=== PATIENT | female | born 2000 | race Caucasian/White ===

== ENCOUNTER 2019-01-02 19:52 | Emergency (ER) | payer BC ==
[2019-01-02] MEDS ORDERED: NS 0.9% 1000 ML** 1,000 ML IV ONE (23:37)
[2019-01-02] MEDS ORDERED: Acetaminophen TAB* 325 MG PO ONE (23:37)
[2019-01-03 00:18] LABS: ABS Lymphocytes 0.9 10^3/ul (1.0-4.8); ABS Monocytes 0.5 10^3/ul (0-0.8); ABS Neutrophils 5.4 10^3/ul (1.5-7.7); Hematocrit 41 % (35-47); Hemoglobin 13.4 g/dL (12.0-16.0); Lymphocyte % 13.4 %; Mean Corpuscular HGB Conc 33 g/dL (31-36); Mean Corpuscular Hemoglobin 30 pg (27-31); Mean Corpuscular Volume 91 fL (80-97); Mean Platelet Volume 9.7 fL (7.4-10.4); Nucleated Red Blood Cells % 0.1; Platelet Count 184 10^3/uL (150-450); Red Blood Count 4.45 10^6 /uL (3.70-4.87); Red Cell Distribution Width 14 % (10-15); White Blood Count 6.8 10^3/uL (3.5-10.8)
[2019-01-03 00:32] LABS: ALT 21 U/L (7-52); AST 28 U/L (13-39); Albumin 3.9 g/dL (3.2-5.2); Albumin/Globulin Ratio 1.2 (1-3); Alkaline Phosphatase 52 U/L (34-104); Anion Gap 8 mmol/L (2-11); BUN/Creatinine Ratio 9.6 (8-20); Blood Urea Nitrogen 7 mg/dL (6-24); C Reactive Protein 95.46 mg/L (<8.01); CO2 Carbon Dioxide 23 mmol/L (22-32); Calcium 8.5 mg/dL (8.6-10.3); Chloride 104 mmol/L (101-111); EGFR Non-African American 101.6 (>60); Globulin 3.2 g/dL (2-4); Glucose 102 mg/dL (70-100); Potassium 3.8 mmol/L (3.5-5.0); Sodium 135 mmol/L (135-145); Total Protein 7.1 g/dL (6.4-8.9)
--- NOTE | 2019-01-03 00:33 | ED ---
HPI Febrile Illness - HPI Summary HPI Summary: 18-year-old female presents with his days. States she's been having a sore throat. States her fevers have been continuing even now she has been dosing Tylenol and ibuprofen every 6 hours. States she went [place] and they tested her for mono and strep and flu which were negative. She denies any cough. No urinary symptoms. No abdominal pain. No nausea vomiting or diarrhea. No chest pain or shortness of breath. She admits to occasional headache but no neck stiffness. Has no medical conditions. - History of Current Complaint Chief Complaint: EDFever Time Seen by Provider: 01/02/19 23:29 Pain Intensity: 6 - Allergy/Home Medications Allergies/Adverse Reactions: Allergies Allergy/AdvReac Type Severity Reaction Status Date / Time No Known Allergies Allergy Verified 01/02/19 20:01 Home Medications: Home Medications Azithromycin TAB* [Zithromax TAB (Z-FADIA) 250 mg #6 tabs] 250 mg PO DAILY [History Confirmed 01/02/19] PMH/Surg Hx/FS Hx/Imm Hx Endocrine/Hematology History: Denies: Hx Anticoagulant Therapy Respiratory History: Denies: Hx Asthma Infectious Disease History: Yes Infectious Disease History: Denies: Traveled Outside the [place] in Last 30 Days - Family History Known Family History: Positive: Non-Contributory - Social History Alcohol Use: None Substance Use Type: Reports: None Smoking Status (MU): Never Smoked Tobacco Review of Systems Positive: Fever Positive: Sore Throat Negative: Chest Pain Negative: Shortness Of Breath, Cough All Other Systems Reviewed And Are Negative: Yes Physical Exam Triage Information Reviewed: Yes Vital Signs On Initial Exam: Initial Vitals Temp Pulse Resp BP Pulse Ox 100 F 125 18 137/103 98 01/02/19 20:00 01/02/19 20:00 01/02/19 20:00 01/02/19 20:00 01/02/19 20:00 Vital Signs Reviewed: Yes Appearance: Positive: Well-Appearing Skin: Positive: Warm, Dry Head/Face: Positive: Normal Head/Face Inspection Eyes: Positive: Normal, EOMI, ANTHONY, Conjunctiva Clear ENT: Positive: Normal ENT inspection, Pharyngeal erythema, TMs normal, Uvula midline, Other - soft palate symmetric. Negative: Tonsillar swelling, Tonsillar exudate, Trismus, Muffled voice Neck: Positive: Supple, Nontender, No Lymphadenopathy. Negative: Nuchal Rigidity Respiratory/Lung Sounds: Positive: Clear to Auscultation, Breath Sounds Present Cardiovascular: Positive: Normal, RRR Abdomen Description: Positive: Nontender, Soft Bowel Sounds: Positive: Present Musculoskeletal: Positive: Normal Neurological: Positive: Normal Psychiatric: Positive: Normal Diagnostics - Vital Signs Vital Signs Temp Pulse Resp BP Pulse Ox 01/03/19 00:00 91 100 01/02/19 23:53 84 97 01/02/19 23:52 92 117/84 100 01/02/19 23:37 100 01/02/19 22:13 98.7 F 103 18 119/79 99 01/02/19 20:00 100 F 125 18 137/103 98 - Laboratory Lab Results: Lab Results 01/03/19 01/03/19 01/03/19 Range/Units 00:05 00:05 00:05 WBC 6.8 (3.5-10.8) 10^3/uL RBC 4.45 (3.70-4.87) 10^6 /uL Hgb 13.4 (12.0-16.0) g/dL Hct 41 (35-47) % MCV 91 (80-97) fL MCH 30 (27-31) pg MCHC 33 (31-36) g/dL RDW 14 (10-15) % Plt Count 184 (150-450) 10^3/uL MPV 9.7 (7.4-10.4) fL Neut % (Auto) 79.6 % Lymph % (Auto) 13.4 % [place] % (Auto) 6.7 % Eos % (Auto) 0.0 % Baso % (Auto) 0.3 % Absolute Neuts (auto) 5.4 (1.5-7.7) 10^3/ul Absolute Lymphs (auto) 0.9 L (1.0-4.8) 10^3/ul Absolute Monos (auto) 0.5 (0-0.8) 10^3/ul Absolute Eos (auto) 0.0 (0-0.6) 10^3/ul Absolute Basos (auto) 0.0 (0-0.2) 10^3/ul Absolute Nucleated RBC 0.0 10^3/ul Nucleated RBC % 0.1 Sodium 135 (135-145) mmol/L Potassium 3.8 (3.5-5.0) mmol/L Chloride 104 (101-111) mmol/L Carbon Dioxide 23 (22-32) mmol/L Anion Gap 8 (2-11) mmol/L BUN 7 (6-24) mg/dL Creatinine 0.73 (0.51-0.95) mg/dL Est GFR ( Amer) 123.0 (>60) Est GFR (Non-Af Amer) 101.6 (>60) BUN/Creatinine Ratio 9.6 (8-20) Glucose 102 H (70-100) mg/dL Lactic Acid 0.7 (0.5-2.0) mmol/L Calcium 8.5 L (8.6-10.3) mg/dL Total Bilirubin 0.30 (0.2-1.0) mg/dL AST 28 (13-39) U/L ALT 21 (7-52) U/L Alkaline Phosphatase 52 (34-104) U/L C-Reactive Protein 95.46 H (<8.01) mg/L Total Protein 7.1 (6.4-8.9) g/dL Albumin 3.9 (3.2-5.2) g/dL Globulin 3.2 (2-4) g/dL Albumin/Globulin Ratio 1.2 (1-3) Beta HCG, Quant Pending Monoscreen Pending Result Diagrams: 01/03/19 00:05 01/03/19 00:05 Lab Statement: Any lab studies that have been ordered have been reviewed, and results considered in the medical decision making process. - Radiology chest Radiology Interpretation Completed By: ED Physician Summary of Radiographic Findings: no pneumonia Course/Dx - Course Course Of Treatment: 18-year-old female presents with his days. States she's been having a sore throat. States her fevers have been continuing even now she has been dosing Tylenol and ibuprofen every 6 hours. States she went [place] and they tested her for mono and strep and flu which were negative. She denies any cough. No urinary symptoms. No abdominal pain. No nausea vomiting or diarrhea. No chest pain or shortness of breath. She admits to occasional headache but no neck stiffness. Has no medical conditions. On exam appears well. Pharynx erythematous. Uvula midline. Soft palate symmetric. lungs clear to Auscultation. Abdomen soft nontender. Chest x-ray read by me as normal. White blood cell count normal. Gave fluids and feeling better. Discussed likely a viral syndrome. Told to treat supportively. Patient understands agrees plan. - Febrile Illness Differential Diagnoses: Pneumonia, Viremia, Other: - mono - Diagnoses Provider Diagnoses: Fever, Pharyngitis Discharge ED - Sign-Out/Discharge Documenting (check all that apply): Patient Departure Patient Received Moderate/Deep Sedation with Procedure: No - Discharge Plan Condition: Good Disposition: HOME Patient Education Materials: Viral Syndrome (ED) Referrals: No Primary Care Phys,NOPCP [Primary Care Provider] - Additional Instructions: Take Tylenol and ibuprofen for muscle aches and fever every 6 hours Drink plenty of fluids follow up with [facility] [place] Return to ED if develop any new or worsening symptoms - Billing Disposition and Condition Condition: GOOD Disposition: Home
[2019-01-03 00:39] LABS: HCG Pregnancy < 0.60 mIU/mL
[2019-01-03 01:53] VITALS: BP 112/65
== END 2019-01-03 01:53 | disposition home or self-care (01) ==
LOC: ED 19:52
DX: J02.9 Acute pharyngitis, unspecified (principal); R50.9 Fever, unspecified
CPT/HCPCS: 36415; 71046; 80053; 83605; 84702; 85025; 86140; 86308; 86618; 87040; 99282; A9270-GY